=== PATIENT | female | born 1945 | race Caucasian/White ===

== ENCOUNTER → 2016-10-09 | Outpatient (CLI) | payer BC ==
--- NOTE | 2016-10-09 13:53 | US ---
EXAMINATION TYPE: US pelvic complete DATE OF EXAM: 10/09/2016 COMPARISON: NONE CLINICAL HISTORY: Inguinal Pain R10.2. Patient stated she believes has right ligament that loosens wi th bent over position and c/o groin pain with return to upright position; order stated for pelvic and perineal pain which patient denies; uterine fibroid TECHNIQUE: Transabdominal (TA) Date of LMP: age 51's EXAM MEASUREMENTS: Uterus: 7.1 x 4.7 x 4.5 cm Endometrial Stripe: 4.5mm Right Ovary: 2.2 x 2.4 x 1.7 cm Left Ovary: 1.9 x 1.7 x 1.1 cm 1. Uterus: Anteverted; round isoechoic mass with internal calcifications/posterior shadowing and per ipheral color flow suggests uterine fibroid 2. Endometrium: limitedly seen on image 7680 and 8192 and thickness is enlarged 3. Right Ovary: wnl 4. Left Ovary: wnl 5. Bilateral Adnexa: wnl 6. Posterior cul-de-sac: wnl IMPRESSION: 1. Suspected uterine fibroid
== END | disposition home or self-care (01) ==
LOC: RADUSWWP 12:54
PROVIDERS: ATTEND Family Medicine
DX: R10.2 Pelvic and perineal pain (principal)
CPT/HCPCS: 76856

== ENCOUNTER → 2017-01-16 | Outpatient (CLI) | payer BC ==
--- NOTE | 2017-01-19 13:53 | MM ---
Reason for exam: screening (asymptomatic). Last mammogram was performed 1 year ago. History: Patient is postmenopausal and has history of other cancer at age 41. Family history of breast cancer in mother at age 65 and breast cancer in paternal aunt at age 88. Benign right mammotome panel of the right breast, December 07, 2006. Benign stereotactic core biopsy of the left breast, March 31, 2002. Benign stereotactic core biopsy, September 10, 2001. Took hormonal contraceptives for 10 years. Took estrogen for 6 years. Took progesterone for 6 years. Physical Findings: A clinical breast exam by your physician is recommended on an annual basis and results should be correlated with mammographic findings. MG 3D Screening Mammo W/Cad Bilateral CC and MLO view(s) were taken. Prior study comparison: January 16, 2016, bilateral MG screening mammo w CAD. January 09, 2015, bilateral MG screening mammo w CAD. The breast tissue is heterogeneously dense. This may lower the sensitivity of mammography. There is chronic nodularity bilaterally. No significant changes when compared with prior studies. ASSESSMENT: Benign, BI-RAD 2 RECOMMENDATION: Routine screening mammogram of both breasts in 1 year.
== END | disposition home or self-care (01) ==
LOC: RADMAMWWP 10:55
PROVIDERS: ATTEND Family Medicine
DX: Z12.31 Encounter for screening mammogram for malignant neoplasm of breast (principal)
CPT/HCPCS: 77063; G0202

== ENCOUNTER → 2017-07-10 | Outpatient (CLI) | payer BC ==
--- NOTE | 2017-07-10 15:12 | CT ---
EXAMINATION TYPE: CT chest wo con DATE OF EXAM: 07/10/2017 COMPARISON: 03/19/2015 HISTORY: Thoracic aortic aneurysm, without rupture CT DLP: 182.[address] of the chest was performed with lung and mediastinal window settings submitted. The la ck of contrast limits evaluation of the vascular, mediastinal and parenchymal structures including th e upper abdomen. LUNGS: The lungs are clear and free of infiltrate. No atelectasis. No pulmonary nodule or mass is de tected. No pleural effusion. No CT evidence of interstitial lung disease. MEDIASTINUM/MIKAYLA: Ascending thoracic aortic aneurysm measuring 4 cm unchanged from prior study. No co nfluent factors. No evidence for mediastinal hematoma. Ectatic change of the descending thoracic aort a noted. The heart is not enlarged. No evidence for mediastinal mass. No lymph nodes greater than 1cm. UPPER ABDOMEN: No significant abnormality is seen. OTHER: No significant other abnormality. IMPRESSION: 1. Stable ascending thoracic aortic aneurysm.
== END ==
LOC: RADCTMAIN 13:34
PROVIDERS: ATTEND Family Medicine
DX: I71.2 Thoracic aortic aneurysm, without rupture (principal)
CPT/HCPCS: 71250

== ENCOUNTER → 2017-07-29 | Outpatient (CLI) | payer BC ==
--- NOTE | 2017-07-29 11:10 | US ---
EXAMINATION TYPE: US liver DATE OF EXAM: 07/29/2017 COMPARISON: CT 02/08/2012 CLINICAL HISTORY: R94.5 ABN Results Of Liver Function Study. EXAM MEASUREMENTS: Liver Length: 13.1 cm Gallbladder Wall: 0.2 cm CBD: 1.0 cm Right Kidney: 10.2 x 3.9 x 4.0 cm Pancreas: Tail obscured by overlying bowel gas, visualized portions show no abnormality Liver: wnl Gallbladder: No stones or sludge visualized Evidence for sonographic Reid's sign: No CBD: Dilated Right Kidney: No hydronephrosis or masses seen IMPRESSION: 1. Common bile duct is dilated for the patient age. 2. Right upper quadrant ultrasound is otherwise unremarkable.
== END | disposition home or self-care (01) ==
LOC: RADUSWWP 08:52
PROVIDERS: ATTEND Family Medicine
DX: K83.8 Other specified diseases of biliary tract (principal)
CPT/HCPCS: 76705

== ENCOUNTER → 2018-01-28 | Outpatient (CLI) | payer BC ==
--- NOTE | 2018-01-29 09:55 | MM ---
Reason for exam: screening (asymptomatic). Last mammogram was performed 1 year ago. History: Patient is postmenopausal and has history of other cancer at age 41. Family history of breast cancer in mother at age 65 and breast cancer in paternal aunt at age 88. Benign right mammotome panel of the right breast, December 07, 2006. Benign stereotactic core biopsy of the left breast, March 31, 2002. Benign stereotactic core biopsy, September 10, 2001. Took hormonal contraceptives for 10 years. Took estrogen for 6 years. Took progesterone for 6 years. Physical Findings: A clinical breast exam by your physician is recommended on an annual basis and results should be correlated with mammographic findings. MG 3D Screening Mammo W/Cad Bilateral CC and MLO view(s) were taken. Prior study comparison: January 16, 2017, bilateral MG 3d screening mammo w/cad. January 16, 2016, bilateral MG screening mammo w CAD. The breast tissue is heterogeneously dense. This may lower the sensitivity of mammography. Partially obscured nodule upper outer right breast 3.5cm from nipple. This finding is changed when compared with previous exams. ASSESSMENT: Incomplete: need additional imaging evaluation, BI-RAD 0 RECOMMENDATION: Special view mammogram and ultrasound of the right breast. [facility] will attempt to contact patient to return for supplemental views and ultrasound.
== END ==
LOC: RADMAMWWP 14:40
PROVIDERS: ATTEND Family Medicine
DX: Z12.31 Encounter for screening mammogram for malignant neoplasm of breast (principal)
CPT/HCPCS: 77063; 77067

== ENCOUNTER → 2018-02-17 | Outpatient (CLI) | payer BC ==
--- NOTE | 2018-02-17 14:52 | MM ---
Reason for exam: additional evaluation requested from abnormal screening. Last mammogram was performed 1 month ago. History: Patient is postmenopausal and has history of other cancer at age 41. Family history of breast cancer in mother at age 65 and breast cancer in paternal aunt at age 88. Benign right mammotome panel of the right breast, December 07, 2006. Benign stereotactic core biopsy of the left breast, March 31, 2002. Benign stereotactic core biopsy, September 10, 2001. Took hormonal contraceptives for 10 years. Took estrogen for 6 years. Took progesterone for 6 years. Physical Findings: Nurse did not find any significant physical abnormalities on exam. MG 3D Work Up W/Cad RT Spot compression CC, spot compression MLO, and LM view(s) were taken of the right breast. Prior study comparison: January 28, 2018, bilateral MG 3d screening mammo w/cad. January 16, 2017, bilateral MG 3d screening mammo w/cad. The breast tissue is heterogeneously dense. This may lower the sensitivity of mammography. Nodule persists upper outer quadrant. These results were verbally communicated with the patient and result sheet given to the patient on 02/17/18. ASSESSMENT: Incomplete: need additional imaging evaluation, BI-RAD 0 RECOMMENDATION: Ultrasound of the right breast.
--- NOTE | 2018-02-17 14:53 | USB ---
Reason for exam: additional evaluation requested from abnormal screening. History: Patient is postmenopausal and has history of other cancer at age 41. Family history of breast cancer in mother at age 65 and breast cancer in paternal aunt at age 88. Benign right mammotome panel of the right breast, December 07, 2006. Benign stereotactic core biopsy of the left breast, March 31, 2002. Benign stereotactic core biopsy, September 10, 2001. Took hormonal contraceptives for 10 years. Took estrogen for 6 years. Took progesterone for 6 years. US Breast Workup Limited RT Right limited breast ultrasound including focal area of concern, retroareolar and axilla demonstrates a 8 x 6 x 10mm lobular, cystic lesion at 11 o'clock. These results were verbally communicated with the patient and result sheet given to the patient on 02/17/18. ASSESSMENT: Benign, BI-RAD 2 RECOMMENDATION: Return to routine screening mammogram schedule for both breasts.
== END | disposition home or self-care (01) ==
LOC: RADMAMWWP 13:35
PROVIDERS: ATTEND Family Medicine
DX: R92.8 Other abnormal and inconclusive findings on diagnostic imaging of breast (principal)
CPT/HCPCS: 77061; 77065

== ENCOUNTER → 2018-07-19 | Outpatient (CLI) | payer BC ==
--- NOTE | 2018-07-19 14:40 | CT ---
EXAMINATION TYPE: CT chest wo con DATE OF EXAM: 07/19/2018 COMPARISON: 07/10/2017 HISTORY: Thoracic aortic aneurysm CT DLP: [address] of the chest was performed with lung and mediastinal window settings submitted. The la ck of contrast limits evaluation of the vascular, mediastinal and parenchymal structures including th e upper abdomen. LUNGS: The lungs are clear and free of infiltrate. No atelectasis. No pulmonary nodule or mass is de tected. No pleural effusion. No CT evidence of interstitial lung disease. MEDIASTINUM/MIKAYLA: Stable ascending thoracic aortic aneurysm at 4 cm versus 4 cm previously. Coronary artery calcifications noted. The heart is mildly enlarged. No evidence for mediastinal mass. No lym ph nodes greater than 1cm. UPPER ABDOMEN: No significant abnormality is seen. OTHER: No significant other abnormality. IMPRESSION: 1. Stable ascending thoracic aortic aneurysm.
== END | disposition home or self-care (01) ==
LOC: RADCTMAIN 13:38
PROVIDERS: ATTEND Family Medicine
DX: I71.2 Thoracic aortic aneurysm, without rupture (principal)
CPT/HCPCS: 71250

== ENCOUNTER → 2019-01-14 | Outpatient (CLI) | payer MEDICARE, OTHER ==
--- NOTE | 2019-01-14 12:08 | FL ---
EXAMINATION TYPE: FL barium swallow DATE OF EXAM: 01/14/2019 CLINICAL HISTORY: Upper esophageal dysphagia. TECHNIQUE: A double contrast esophagram is performed utilizing air and barium. A total of 1.59 margot hannah of fluoroscopic time was utilized during procedure. 54 static images were saved during the examin ation. COMPARISON: None FINDINGS: Given the patient's upper esophageal dysphagia lateral image was obtained demonstrating no evidence of laryngeal penetration or aspiration. The esophagus shows normal abnormal and delayed empt paul into the stomach. There are tertiary contractions suggesting presbyesophagus and delayed transit at the gastroesophageal junction persistent lesion throughout the exam is indicative of a partial st ricture. Endoscopy is recommended. The lateral view demonstrates anterior cervical osteophytes impressing upon the posterior esophagus. No evidence of hiatal hernia. No significant gastroesophageal reflux was seen during real time perfor shavonne of this study. IMPRESSION: 1. 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 2. Abnormal esophageal motility with tertiary contractions most likely related to presbyesophagus or less likely neuromuscular disorder. 3. Anterior projecting osteophytes from the cervical spine on the basis of degenerative disc disease resulting in mild impression on the posterior cervical esophagus at multiple levels.
== END ==
LOC: RADUSWWP 11:00
PROVIDERS: ATTEND Family Medicine
DX: K22.2 Esophageal obstruction (principal); K22.8 Other specified diseases of esophagus; M50.30 Other cervical disc degeneration, unspecified cervical region
CPT/HCPCS: 74220

== ENCOUNTER → 2019-02-28 | Outpatient (CLI) | payer MEDICARE, OTHER ==
--- NOTE | 2019-03-01 11:40 | MM ---
Reason for exam: screening (asymptomatic). Last mammogram was performed 1 year ago. History: Patient is postmenopausal and has history of other cancer at age 41. Family history of breast cancer in mother at age 65 and breast cancer in paternal aunt at age 88. Benign right mammotome panel of the right breast, December 07, 2006. Benign stereotactic core biopsy of the left breast, March 31, 2002. Benign stereotactic core biopsy, September 10, 2001. Took hormonal contraceptives for 10 years. Took estrogen for 6 years. Took progesterone for 6 years. Physical Findings: A clinical breast exam by your physician is recommended on an annual basis and results should be correlated with mammographic findings. MG 3D Screening Mammo W/Cad Bilateral CC and MLO view(s) were taken. Prior study comparison: February 17, 2018, right breast MG 3d work up w/cad RT. January 28, 2018, bilateral MG 3d screening mammo w/cad. The breast tissue is heterogeneously dense. This may lower the sensitivity of mammography. There is no discrete abnormality. No significant changes when compared with prior studies. ASSESSMENT: Benign, BI-RAD 2 RECOMMENDATION: Routine screening mammogram of both breasts in 1 year.
== END | disposition home or self-care (01) ==
LOC: RADMAMWWP 13:30
PROVIDERS: ATTEND Family Medicine
DX: Z12.31 Encounter for screening mammogram for malignant neoplasm of breast (principal)
CPT/HCPCS: 77063; 77067

== ENCOUNTER → 2019-08-24 | Outpatient (CLI) | payer MEDICARE, OTHER ==
--- NOTE | 2019-08-24 15:54 | CT ---
CT CHEST FOR PULMONARY EMBOLISM. EXAMINATION TYPE: CT angio chest DATE OF EXAM: 08/24/2019 INDICATION: follow up thoracic aortic aneurysm CT DLP: 161.9 mGycm, Automated exposure control for dose reduction was used. CONTRAST: Patient injected with 100 mL of Isovue 370. COMPARISON: 07/19/2018 TECHNIQUE: CT of the chest is performed on a spiral scan at 2 mm thick sections. Study is performed with intravenous contrast timed for evaluation for aortic aneurysm. This will limit additional porti ons of the evaluation. FINDINGS: No persistent filling defects are evident to suggest an acute pulmonary embolism. No mediastinal or hilar adenopathy enlarged by CT criteria is evident. The ascending aorta diameter at the level of the main pulmonary artery is 3.6 cm. The main pulmonary artery diameter at the bifur cation is 2.4 cm. Aorta at the aortic root is 3.2 cm area the aorta at the mid aortic arch is 2.7 cm. The descending th oracic aorta at the level of the diaphragm is 2.3 cm. No dissection is evident. Lung windows are clear. Limited CT section through the upper abdomen are unremarkable. IMPRESSIONS: 1. Mild fusiform prominence of the ascending thoracic aorta. No increasing diameter of the thoracic a ginny is evident.
== END | disposition home or self-care (01) ==
LOC: RADCTMAIN 12:50
PROVIDERS: ATTEND Thoracic Surgery (Cardiothoracic Vascular Surgery)
DX: I71.2 Thoracic aortic aneurysm, without rupture (principal)
CPT/HCPCS: 82565; 84520; 71275; 36415; Q9967

== ENCOUNTER → 2020-02-15 | Outpatient (CLI) | payer MEDICARE, OTHER ==
--- NOTE | 2020-02-15 14:19 | US ---
EXAMINATION TYPE: US thyroid st tissue head/neck DATE OF EXAM: 02/15/2020 COMPARISON: NONE CLINICAL HISTORY: R22.1 SWELLING,MASS,LUMP. Right neck palpable area x couple months Right Neck: 1.5 x 0.6 x 0.9cm lymph node seen at patient's area of concern IMPRESSION: Limited ultrasound scanning over the area of palpable abnormality demonstrates a small l ymph node overlying the area of concern measuring 1.5 x 0.6 x 0.9 cm.
--- NOTE | 2020-02-15 14:25 | US ---
EXAMINATION TYPE: US carotid duplex BILAT DATE OF EXAM: 02/15/2020 COMPARISON: NONE CLINICAL HISTORY: I77.9 disorder of arteries and arterioles. EXAM MEASUREMENTS: RIGHT: Peak Systolic Velocity (PSV) cm/sec ----- Right CCA: 76.7 ----- Right ICA: 84.4 ----- Right ECA: 149.0 ICA/CCA ratio: 1.1 RIGHT: End Diastole cm/sec ----- Right CCA: 20.1 ----- Right ICA: 28.8 ----- Right ECA: 21.3 LEFT: Peak Systolic Velocity (PSV) cm/sec ----- Left CCA: 94.5 ----- Left ICA: 79.8 ----- Left ECA: 107.0 ICA/CCA ratio: 0.8 LEFT: End Diastole cm/sec ----- Left CCA: 23.4 ----- Left ICA: 31.9 ----- Left ECA: 17.7 VERTEBRALS (direction of flow): Right Vertebral: Antegrade Left Vertebral: Antegrade Rhythm: Normal Intimal thickening, elevated velocity right proximal ECA, no significant stenosis. IMPRESSION: 1. Intimal thickening with no significant hemodynamic stenosis. Criteria for Assigning % of Stenosis / Diameter reduction (Estimation based on the indirect measurements of the internal carotid artery velocities (ICA PSV). 1. Normal (no stenosis)=ICA PSV < 125 cm/s: ratio < 2.0: ICA EDV<40 cm/s. 2. Less than 50% stenosis=ICA PSV < 125 cm/s: ratio < 2.0: ICA EDV<40 cm/s. 3. 50 to 69% stenosis=ICA PSV of 125 to 230 cm/s: ration 2.0 ? 4.0: ICA EDV 40-100 cm/s. 4. Greater than 70% stenosis to near occlusion= ICA PSV > 230 cm/s: ratio > 4.0: ICA EDV > 100 cm/s. 5. Near occlusion= ICA PSV velocities may be low or undetectable: variable ratio and ICA EDV. 6. Total occlusion=unable to detect flow.
== END | disposition home or self-care (01) ==
LOC: RADUSWWP 13:41
PROVIDERS: ATTEND Family Medicine
DX: E04.1 Nontoxic single thyroid nodule (principal); I77.9 Disorder of arteries and arterioles, unspecified
CPT/HCPCS: 76536; 93880

== ENCOUNTER → 2020-04-18 | Outpatient (CLI) | payer MEDICARE, OTHER ==
--- NOTE | 2020-04-18 15:13 | BD ---
EXAMINATION TYPE: Axial Bone Density DATE OF EXAM: 04/18/2020 COMPARISON: 01/09/2015 CLINICAL HISTORY: Postmenopausal female. Height: 67 IN Weight: 144 LBS FRAX RISK QUESTIONS: Alcohol (3 or more units per day): YES RISK FACTORS HISTORY OF: Active: YES Postmenopausal woman: AGE 56 Take estrogen and/or progesterone medications: NOT NOW TOOK FOR 6 YEARS MEDICATIONS: Additional Medications: MULTI VIT, CALCIUM, OMEPRAZOLE, STATIN EXAM MEASUREMENTS: Bone mineral densitometry was performed using the cloudControl System. Bone mineral density as measured about the Lumbar spine is: ----- L1-L4(G/cm2): 1.552 T Score Values are as follows: ----- L2: 3.3 ----- L3: 3.6 ----- L4: 2.5 ----- L1-L4: 3.1 Bone mineral density has: Decreased -0.8% since study of: 01/09/2015 Bone mineral density about the R hip (g/cm2): 0988 Bone mineral density about the L hip (g/cm2): 1.040 T Score values are as follows: -----R Neck: -0.4 -----L Neck: 0.0 -----R Total: 0.2 -----L Total: 0.7 Bone mineral density has: Decreased -3.7% since study of: 01/05/2015 IMPRESSION: Normal (Values between +1 and -1 indicate normal bone mass). Consider repeating this study in 5 year s or sooner if there is some new clinical indication. NOTE: T-SCORE=SD OF THE YOUNG ADULT MEAN.
--- NOTE | 2020-04-19 14:28 | MM ---
Reason for exam: screening (asymptomatic). Last mammogram was performed 1 year and 2 months ago. History: Patient is postmenopausal and has history of other cancer at age 41. Family history of breast cancer in mother at age 65 and breast cancer in paternal aunt at age 88. Benign right mammotome panel of the right breast, December 07, 2006. Benign stereotactic core biopsy of the left breast, March 31, 2002. Benign stereotactic core biopsy, September 10, 2001. Took hormonal contraceptives for 10 years. Took estrogen for 6 years. Took progesterone for 6 years. Physical Findings: A clinical breast exam by your physician is recommended on an annual basis and results should be correlated with mammographic findings. MG 3D Screening Mammo W/Cad Bilateral CC and MLO view(s) were taken. Prior study comparison: February 28, 2019, bilateral MG 3d screening mammo w/cad. February 17, 2018, right breast MG 3d work up w/cad RT. January 28, 2018, bilateral MG 3d screening mammo w/cad. January 16, 2017, bilateral MG 3d screening mammo w/cad. January 16, 2016, bilateral MG screening mammo w CAD. There are scattered fibroglandular densities. Previous mammotome biopsy in the right breast x 1 and in the left breast x 2. There is chronic nodularity in the right breast. No significant changes when compared with prior studies. ASSESSMENT: Benign, BI-RAD 2 RECOMMENDATION: Routine screening mammogram of both breasts in 1 year.
== END | disposition home or self-care (01) ==
LOC: RADMAMWWP 10:06
PROVIDERS: ATTEND Family Medicine
DX: Z12.31 Encounter for screening mammogram for malignant neoplasm of breast (principal); Z13.820 Encounter for screening for osteoporosis
CPT/HCPCS: 77063; 77067; 77080

== ENCOUNTER 2021-03-05 06:35 | Day surgery (SDC) | payer MEDICARE, OTHER ==
[2021-03-04 11:06] VITALS: BMI 21.9
[~2021-03-05 06:35] MED LIST: LACTATED RINGERS 1,000 ML IV SCH; LIDOCAINE 1% (10MG/ML) FOR IV START INTRADERMA PRN
[2021-03-05 07:01] VITALS: TEMP 98
[2021-03-05 07:11] LABS: Glucose,Whole Blood 95 mg/dL (75-99)
[2021-03-05] MEDS ORDERED: PROPOFOL 10 MG/ML 20 ML VIAL IV ONE (07:18)
--- NOTE | 2021-03-05 07:34 | P.PCN ---
Date of Procedure: 03/05/21 Procedure(s) Performed: BRIEF HISTORY: Patient is a 75-year-old pleasant female scheduled for an elective colonoscopy as a part of value should of prior history of colon polyps. Her last colonoscopy was 5 years ago. PROCEDURE PERFORMED: Colonoscopy. PREOPERATIVE DIAGNOSIS: History of colon polyps. IV sedation per Anesthesia. PROCEDURE: After informed consent was obtained, the patient, was brought into the endoscopy unit. IV sedation was administered by Anesthesia under continuous monitoring. Digital rectal examination was normal. Initially the Olympus CF-160 flexible video colonoscope was then inserted in the rectum, gradually advanced into the cecum without any difficulty. Careful examination was performed as the scope was gradually being withdrawn. Ileocecal valve and the appendiceal orifice were visualized and appeared normal. Prep was excellent. Mucosa of the cecum, ascending colon, transverse colon, descending colon, sigmoid colon, and rectum appeared normal. At her sigmoid diverticulosis. Retroflexion was performed in the rectum and no lesions were seen. The patient tolerated the procedure well. IMPRESSION: Normal-appearing colon from rectum to cecum no evidence of colorectal neoplasia . Scattered sigmoid diverticulosis RECOMMENDATIONS: Findings of this examination were discussed with the patient as well as her family. She was advised to have a repeat surveillance colonoscopy in 5 years from now because of the prior history of colon.
[2021-03-05 07:44] VITALS: RESP 16
[2021-03-05 07:50] VITALS: BP 146/79; PULSE 59
== END 2021-03-05 08:37 | disposition home or self-care (01) ==
LOC: ORWHC2ENDO 06:35
PROVIDERS: ATTEND Internal Medicine Gastroenterology
DX: Z12.11 Encounter for screening for malignant neoplasm of colon (principal); K57.90 Diverticulosis of intestine, part unspecified, without perforation or abscess without bleeding; M19.90 Unspecified osteoarthritis, unspecified site; I10 Essential (primary) hypertension; E78.5 Hyperlipidemia, unspecified; K21.9 Gastro-esophageal reflux disease without esophagitis; Z86.010 Personal history of colon polyps; Z88.0 Allergy status to penicillin; Z88.1 Allergy status to other antibiotic agents; Z88.5 Allergy status to narcotic agent; Z88.2 Allergy status to sulfonamides; Z79.899 Other long term (current) drug therapy
CPT/HCPCS: J2704; G0105; 45378

== ENCOUNTER → 2021-04-23 | Outpatient (CLI) | payer MEDICARE, OTHER ==
--- NOTE | 2021-04-25 11:47 | MM ---
Reason for exam: screening (asymptomatic). Last mammogram was performed 1 year ago. History: Patient is postmenopausal and has history of other cancer at age 41. Family history of breast cancer in mother at age 65 and breast cancer in paternal aunt at age 88. Benign right mammotome panel of the right breast, December 07, 2006. Benign stereotactic core biopsy of the left breast, March 31, 2002. Benign stereotactic core biopsy, September 10, 2001. Took hormonal contraceptives for 10 years. Took estrogen for 6 years. Took progesterone for 6 years. Physical Findings: A clinical breast exam by your physician is recommended on an annual basis and results should be correlated with mammographic findings. MG 3D Screening Mammo W/Cad Bilateral CC and MLO view(s) were taken. Prior study comparison: April 18, 2020, bilateral MG 3d screening mammo w/cad. February 28, 2019, bilateral MG 3d screening mammo w/cad. The breast tissue is heterogeneously dense. This may lower the sensitivity of mammography. There are benign appearing round calcifications bilaterally. Previous mammotome biopsy in the left breast x 2. There is chronic nodularity in the right breast. There is no discrete abnormality. ASSESSMENT: Benign, BI-RAD 2 RECOMMENDATION: Routine screening mammogram of both breasts in 1 year.
== END | disposition home or self-care (01) ==
LOC: RADMAMWWP 15:41
PROVIDERS: ATTEND Family Medicine
DX: Z12.31 Encounter for screening mammogram for malignant neoplasm of breast (principal); Z78.0 Asymptomatic menopausal state; Z80.3 Family history of malignant neoplasm of breast
CPT/HCPCS: 77063; 77067

== ENCOUNTER 2022-04-23 12:19 | Emergency (ER) | payer MEDICARE, OTHER ==
[2022-04-23 12:46] VITALS: TEMP 97.6
[2022-04-23 13:33] LABS: Basophils % (A) 1 %; Eosinophils # (A) 0.1 k/uL (0-0.7); Eosinophils % (A) 2 %; HCT 39.8 % (34.0-46.0); HGB 13.4 gm/dL (11.4-16.0); Lymphocytes # (A) 0.8 k/uL (1.0-4.8); Lymphocytes % (A) 20 %; MCH 31.9 pg (25.0-35.0); MCHC 33.6 g/dL (31.0-37.0); Mean Platelet Volume 7.6; Monocytes # (A) 0.2 k/uL (0-1.0); Monocytes % (A) 6 %; Neutrophils # (A) 2.8 k/uL (1.3-7.7); Neutrophils % (A) 69 %; Platelet Count 287 k/uL (150-450); RBC 4.19 m/uL (3.80-5.40); RDW 12.3 % (11.5-15.5); WBC 4.1 k/uL (3.8-10.6)
[2022-04-23 13:40] LABS: Albumin 4.1 g/dL (3.5-5.0); Calcium 8.8 mg/dL (8.4-10.2); Potassium 4.4 mmol/L (3.5-5.1); Total Bilirubin 0.4 mg/dL (0.2-1.3); Total Protein 6.9 g/dL (6.3-8.2)
[2022-04-23 13:41] LABS: Partial Thromboplastin Time 25.5 sec (22.0-30.0); Prothrombin Time 10.4 sec (9.0-12.0)
--- NOTE | 2022-04-23 14:12 | ED ---
Back Pain HPI - General Chief Complaint: Back Pain/Injury Stated Complaint: sudden back/neck pain Time Seen by Provider: 04/23/22 12:50 Source: patient - History of Present Illness Initial Comments: 76-year-old female with past medical history of aortic aneurysm presents to the emergency department with intrascapular back pain. Reports that at 1145 this morning she was taking a shower when she had sudden onset of pain in between her shoulder blades. She states that it was a sharp pain which lasted approximately 15 minutes before spontaneously resolved. She states that the pain slowly eased up. She has never had pain similar before in the past. Denies any associated shortness of breath. No fevers, chills or cough. No numbness, tingling or weakness in her extremities. She does have a history of aneurysm. Is scheduled for a CT next week to determine the progression of it. She follows with Dr. Muñoz. She denies any anterior chest pain. No abdominal pain. Pain is completely resolved at this time. No other history of cardiac disease. No other alleviating, precipitating or modifying factors - Related Data Home Medications Medication Instructions Recorded Confirmed Atorvastatin Calcium 10 mg PO DAILY 11/14/15 04/23/22 Omeprazole 20 mg PO DAILY 11/14/15 04/23/22 Allergies Allergy/AdvReac Type Severity Reaction Status Date / Time clindamycin HCl Allergy Anaphylaxis, Verified 04/23/22 14:37 [From Cleocin] SWELLING OF LIPS clindamycin palmitate HCl Allergy Anaphylaxis,SWELLING Verified 04/23/22 14:37 [From Cleocin] OF LIPS clindamycin phosphate Allergy Anaphylaxis Verified 04/23/22 14:37 [From Cleocin] nitrofurantoin Allergy CHILLS,ACHE Verified 04/23/22 14:37 [From Macrodantin] S,FEVER Penicillins Allergy FACE GOT Verified 04/23/22 14:37 RED CHILD propoxyphene napsylate Allergy Swelling, Verified 04/23/22 14:37 [From Darvocet-N] UNABLE TO URINATE, FELT STRANGE rofecoxib [From Vioxx] Allergy Swelling Verified 04/23/22 14:37 Sulfa (Sulfonamide Allergy Anaphylaxis Verified 04/23/22 14:37 Antibiotics) gentamicin AdvReac POSSIBLE Verified 04/23/22 14:37 ALLERGY TOOK WITH CLEOCIN Review of Systems ROS Statement: Those systems with pertinent positive or pertinent negative responses have been documented in the HPI. ROS Other: All systems not noted in ROS Statement are negative. Past Medical History Past Medical History: Cancer, GERD/Reflux, Osteoarthritis (OA) Additional Past Medical History / Comment(s): hx- diverticulitis, HYPOGLYCEMIA, SKIN CANCER, aortic aneurysm History of Any Multi-Drug Resistant Organisms: None Reported Past Surgical History: Orthopedic Surgery, Tonsillectomy Additional Past Surgical History / Comment(s): RT HEEL SPUR SX. DEVIATED SEPTUM REPAIR. ABDOMINALOPLASTY, RIGHT THUMB SURGERY Past Anesthesia/Blood Transfusion Reactions: No Reported Reaction Past Psychological History: No Psychological Hx Reported Smoking Status: Former smoker Past Alcohol Use History: Daily Past Drug Use History: None Reported - Past Family History Mother Family Medical History: Cancer Additional Family Medical History / Comment(s): BREAST General Exam General appearance: alert, in no apparent distress Head exam: Present: atraumatic, normocephalic, normal inspection Eye exam: Present: normal appearance, PERRL, EOMI. Absent: scleral icterus, conjunctival injection, periorbital swelling ENT exam: Present: normal exam, mucous membranes moist Neck exam: Present: normal inspection. Absent: tenderness, meningismus, lymphadenopathy Respiratory exam: Present: normal lung sounds bilaterally. Absent: respiratory distress, wheezes, rales, rhonchi, stridor Cardiovascular Exam: Present: regular rate, normal rhythm, normal heart sounds. Absent: systolic murmur, diastolic murmur, rubs, gallop, clicks GI/Abdominal exam: Present: soft, normal bowel sounds. Absent: distended, tenderness, guarding, rebound, rigid Extremities exam: Present: normal inspection, full ROM, normal capillary refill. Absent: tenderness, pedal edema, joint swelling, calf tenderness Back exam: Present: normal inspection Neurological exam: Present: alert, oriented X3, CN II-XII intact Psychiatric exam: Present: normal affect, normal mood Skin exam: Present: warm, dry, intact, normal color. Absent: rash Course Vital Signs 04/23/22 04/23/22 12:42 15:06 Temperature 97.6 F Pulse Rate 82 65 Respiratory 16 18 Rate Blood Pressure 167/77 167/99 O2 Sat by Pulse 95 98 Oximetry Medical Decision Making - Medical Decision Making Was pt. sent in by a medical professional or institution? no Did you speak to anyone other than the patient for history? no Did you review nursing and triage notes? yes and I agree Were old charts reviewed? yes, previous imaging to understand size of patients aneurysm Differential Diagnosis? pulmonary embolism, aortic dissection, coronary vasospasm, coronary dissection, valvular disorder, pleurisy, msk pain, chest wall strain, costochondritis EKG interpreted by me (3pts min.)? yes X-rays interpreted by me (1pt min.)? no CT interpreted by me (1pt min.)? yes U/S interpreted by me (1pt. min.)? no What testing was considered but not performed? (CT, X-rays, U/S, labs)? Why? none What meds were considered but not given? Why? none Did you discuss the management of the patient with other professionals? no Did you reconcile home meds? no Was smoking cessation discussed for >3mins.? no Was critical care preformed (if so, how long)? no Were there social determinants of health that impacted care today? How? (Homelessness, low income, unemployed, alcoholism, drug addiction, transportation, low edu. Level, literacy, decrease access to med. care, care home, rehab)? none Was there de-escalation of care discussed even if they declined? (Discuss DNR or withdrawal of care, Hospice)? no What co-morbidities impacted this encounter? (DM, HTN, Smoking, COPD, CAD, Cancer, CVA, Hep., AIDS, mental health diagnosis, sleep apnea, morbid obesity)? htn, aortic aneurysm Was patient admitted / discharged? @Upon arrival patient was placed into room 18. A thorough history and physical exam is performed. IV access was established. Laboratory studies were conducted. The lead EKG is obtained. Patient remained on continuous pulse ox and cardiac monitoring. I did review the patient's laboratory studies which demonstrated negative first troponin. Patient is sent for CT of her chest which demonstrates a stable aortic aneurysm. Results are discussed with the patient. She has remained pain free throughout her stay. Did recommend admission however the patient would prefer to follow up outpatient. I am able to draw second troponin off the patient which is also negative. Patient will be discharged home and needs to follow-up with her smelting engineer for further evaluation of her symptoms or return for any new or worsening symptoms. Patient was agreeable to this plan and she was discharged home in stable condition Undiagnosed new problem with uncertain prognosis? yes Drug Therapy requiring intensive monitoring for toxicity (Heparin, Nitro, Insulin, Cardizem)? no Were any procedures done? no Diagnosis/symptom? acute chest pain Acute, or Chronic, or Acute on Chronic? acute Uncomplicated (without systemic symptoms) or Complicated (systemic symptoms)? complicated Side effects of treatment? none Exacerbation, Progression, or Severe Exacerbation] no Poses a threat to life or bodily function? yes - Lab Data Result diagrams: 04/23/22 13:07 04/23/22 13:07 Lab Results 04/23/22 04/23/22 04/23/22 Range/Units 13:07 13:07 13:07 WBC 4.1 (3.8-10.6) k/uL RBC 4.19 (3.80-5.40) m/uL Hgb 13.4 (11.4-16.0) gm/dL Hct 39.8 (34.0-46.0) % MCV 95.0 (80.0-100.0) fL MCH 31.9 (25.0-35.0) pg MCHC 33.6 (31.0-37.0) g/dL RDW 12.3 (11.5-15.5) % Plt Count 287 (150-450) k/uL MPV 7.6 Neutrophils % 69 % Lymphocytes % 20 % Monocytes % 6 % Eosinophils % 2 % Basophils % 1 % Neutrophils # 2.8 (1.3-7.7) k/uL Lymphocytes # 0.8 L (1.0-4.8) k/uL Monocytes # 0.2 (0-1.0) k/uL Eosinophils # 0.1 (0-0.7) k/uL Basophils # 0.0 (0-0.2) k/uL PT 10.4 (9.0-12.0) sec INR 1.0 (<1.2) APTT 25.5 (22.0-30.0) sec Sodium 136 L (137-145) mmol/L Potassium 4.4 (3.5-5.1) mmol/L Chloride 105 (98-107) mmol/L Carbon Dioxide 25 (22-30) mmol/L Anion Gap 6 mmol/L BUN 15 (7-17) mg/dL Creatinine 0.76 (0.52-1.04) mg/dL Est GFR (CKD-EPI)AfAm 89 (>60 ml/min/1.73 sqM) Est GFR (CKD-EPI)NonAf 77 (>60 ml/min/1.73 sqM) Glucose 108 H (74-99) mg/dL Calcium 8.8 (8.4-10.2) mg/dL Magnesium 2.0 (1.6-2.3) mg/dL Total Bilirubin 0.4 (0.2-1.3) mg/dL AST 32 (14-36) U/L ALT 28 (4-34) U/L Alkaline Phosphatase 78 (38-126) U/L Troponin I (0.000-0.034) ng/mL Total Protein 6.9 (6.3-8.2) g/dL Albumin 4.1 (3.5-5.0) g/dL Lipase 194 (23-300) U/L 04/23/22 04/23/22 Range/Units 13:07 14:44 WBC (3.8-10.6) k/uL RBC (3.80-5.40) m/uL Hgb (11.4-16.0) gm/dL Hct (34.0-46.0) % MCV (80.0-100.0) fL MCH (25.0-35.0) pg MCHC (31.0-37.0) g/dL RDW (11.5-15.5) % Plt Count (150-450) k/uL MPV Neutrophils % % Lymphocytes % % Monocytes % % Eosinophils % % Basophils % % Neutrophils # (1.3-7.7) k/uL Lymphocytes # (1.0-4.8) k/uL Monocytes # (0-1.0) k/uL Eosinophils # (0-0.7) k/uL Basophils # (0-0.2) k/uL PT (9.0-12.0) sec INR (<1.2) APTT (22.0-30.0) sec Sodium (137-145) mmol/L Potassium (3.5-5.1) mmol/L Chloride (98-107) mmol/L Carbon Dioxide (22-30) mmol/L Anion Gap mmol/L BUN (7-17) mg/dL Creatinine (0.52-1.04) mg/dL Est GFR (CKD-EPI)AfAm (>60 ml/min/1.73 sqM) Est GFR (CKD-EPI)NonAf (>60 ml/min/1.73 sqM) Glucose (74-99) mg/dL Calcium (8.4-10.2) mg/dL Magnesium (1.6-2.3) mg/dL Total Bilirubin (0.2-1.3) mg/dL AST (14-36) U/L ALT (4-34) U/L Alkaline Phosphatase (38-126) U/L Troponin I <0.012 <0.012 (0.000-0.034) ng/mL Total Protein (6.3-8.2) g/dL Albumin (3.5-5.0) g/dL Lipase (23-300) U/L - EKG Data EKG Comments: EKG demonstrates sinus rhythm with a rate of 68. MO interval 170. QRS 93. QTC of 401. No acute ST segment elevations or depressions Disposition Clinical Impression: Back pain, Hx of aortic aneurysm Disposition: HOME SELF-CARE Condition: Stable Instructions (If sedation given, give patient instructions): Back Pain (ED) Additional Instructions: We will call you if the results of your second enzyme come back positive. Please also see your doctor in 2-4 days and return for any new or worsening symptoms Is patient prescribed a controlled substance at d/c from ED?: No Referrals: Calin Carlisle DO [Primary Care Provider] - 1-2 days Time of Disposition: 14:45
--- NOTE | 2022-04-23 14:25 | CT ---
CT CHEST FOR PULMONARY EMBOLISM. EXAMINATION TYPE: CT angio chest DATE OF EXAM: 04/23/2022 INDICATION: chest pain, hx aneurysm CT DLP: 600.9 mGycm, Automated exposure control for dose reduction was used. CONTRAST: Patient injected with 100 mL of Isovue 370. COMPARISON: 08/24/2019 TECHNIQUE: CT of the chest is performed on a spiral scan at 2 mm thick sections. Study is performed with intravenous contrast timed for evaluation of thoracic aneurysm. This will limit additional port ions of the evaluation. 3-D MIP images reconstructed by the technologist are reviewed on the compute r in the coronal and sagittal planes. FINDINGS: There is a three-vessel arch. The aorta appears to taper towards visualized course. The thoracic aort a and pulmonary artery measures 3.7 cm. Previous measurement 3.6 cm. This can be within measurement e rror. Main pulmonary artery at the bifurcation measures 2.6 cm. Transverse thoracic aorta arch measur es 2.6 cm. The descending thoracic aorta appears normal. No aortic dissections are evident. Celiac ax is and superior mesenteric arteries appear normal. The visualized portions of the renal artery takeof f are normal. No mediastinal or hilar adenopathy enlarged by CT criteria is evident. Lung windows are clear. Limited CT section through the upper abdomen are unremarkable. IMPRESSIONS: 1. Ascending thoracic aortic fusiform prominence of 3.7 cm.
[2022-04-23 15:08] VITALS: BP 167/99; PULSE 65; RESP 18
== END 2022-04-23 15:08 | disposition home or self-care (01) ==
LOC: EC 12:19
DX: M54.50 Low back pain, unspecified (principal); I71.9 Aortic aneurysm of unspecified site, without rupture; K21.9 Gastro-esophageal reflux disease without esophagitis; M19.90 Unspecified osteoarthritis, unspecified site; Z79.899 Other long term (current) drug therapy; Z87.891 Personal history of nicotine dependence; Z88.0 Allergy status to penicillin; Z88.1 Allergy status to other antibiotic agents; Z88.2 Allergy status to sulfonamides; Z88.8 Allergy status to other drugs, medicaments and biological substances
CPT/HCPCS: 36415; 93005; 80053; 83690; 83735; 84484; 85025; 85610; 85730; 71275; 99284; Q9967

== ENCOUNTER → 2022-05-01 | Outpatient (CLI) | payer MEDICARE, OTHER ==
--- NOTE | 2022-05-04 18:27 | MM ---
Reason for Exam: Screening (asymptomatic). Last screening mammogram was performed 12 month(s) ago. Patient History: Menarche at age 12. First Full-Term at age 27. Postmenopausal. Other cancer, age 41. Estrogen for 6 years until age 56. Progesterone for 6 years until age 56. Patient used Hormonal Contraceptives for 10 years. 12/07/2006, Benign Core Biopsy on the right side. 03/31/2002, Benign Stereotactic Core Biopsy on the left side. Benign Stereotactic Core Biopsy. Paternal aunt had breast cancer, age 88. Mother had breast cancer, age 65. Risk Values: Radha 5 year model risk: 5.7%. NCI Lifetime model risk: 11.9%. Prior Study Comparison: 03/03/1996 Screening Mammogram, Unknown. 03/14/1996 Screening Mammogram, Unknown. 10/26/2007 Bilateral Diagnostic Mammogram, [facility]. 11/28/2008 Bilateral Diagnostic Mammogram, [facility]. 12/04/2009 Bilateral Diagnostic Mammogram, [facility]. 12/06/2010 Bilateral Screening Mammogram, [facility]. 12/12/2011 Bilateral Screening Mammogram, [facility]. 12/24/2012 Bilateral Screening Mammogram, [facility]. 12/28/2013 Bilateral Screening Mammogram, [facility]. 01/09/2015 Bilateral Screening Mammogram, [facility]. 01/16/2016 Bilateral Screening Mammogram, [facility]. 01/16/2017 Bilateral Screening Mammogram, [facility]. 01/28/2018 Bilateral Screening Mammogram, [facility]. 02/17/2018 Right Diagnostic Mammogram, [facility]. 02/17/2018 Right Diagnostic Ultrasound, [facility]. 02/28/2019 Bilateral Screening Mammogram, [facility]. 04/18/2020 Bilateral Screening Mammogram, [facility]. 04/23/2021 Bilateral Screening Mammogram, [facility]. Tissue Density: There are scattered fibroglandular densities. Findings: Analyzed By CAD. Chronic bilateral nodularity. Microclip left breast and medial right breast from prior biopsies. There is no suspicious group of microcalcifications or new suspicious mass in either breast. Overall Assessment: Benign, BI-RAD 2 Management: Screening Mammogram of both breasts in 1 year. 1. Patient should continue monthly self breast exams. 2. A clinical breast exam by your physician is recommended on an annual basis. 3. This exam should not preclude additional follow-up of suspicious palpable abnormalities. Electronically signed and approved by: Brittnee Benitez M.D. Radiologist
== END | disposition home or self-care (01) ==
LOC: RADMAMWWP 14:59
PROVIDERS: ATTEND Family Medicine
DX: Z12.31 Encounter for screening mammogram for malignant neoplasm of breast (principal); Z78.0 Asymptomatic menopausal state; Z80.3 Family history of malignant neoplasm of breast
CPT/HCPCS: 77063; 77067

== ENCOUNTER → 2022-09-10 | Outpatient (CLI) | payer MEDICARE, OTHER | END | disposition home or self-care (01) | LOC: LABPAT 15:33 | PROVIDERS: ATTEND Obstetrics & Gynecology | DX: Z01.812 Encounter for preprocedural laboratory examination (principal); N81.11 Cystocele, midline ==

== ENCOUNTER 2022-09-16 05:52 | Day surgery (SDC) | payer MEDICARE, OTHER ==
[2022-09-11 13:13] VITALS: BMI 21.9
[2022-09-12 13:41] LABS: African American GFR (CKD) 98.2 (60.0-200.0); Anion Gap 12.4 mmol/L (10.00-18.00); Basophils # (A) 0.02 X 10*3/uL (0.00-0.10); Basophils % (A) 0.4 %; Blood Urea Nitrogen 14.2 mg/dL (9.0-27.0); Carbon Dioxide 27.6 mmol/L (20.0-27.5); Eosinophils # (A) 0.11 X 10*3/uL (0.04-0.35); Eosinophils % (A) 2.1 %; HCT 40.2 % (37.2-46.3); HGB 13.2 g/dL (12.0-15.0); Immature Grans, Automated 0.2 %; MCHC 32.8 g/dL (32.0-37.0); MCV 97.6 fL (80.0-97.0); Mean Platelet Volume 10.4 fL (9.5-12.2); Monocytes # (A) 0.45 X 10*3/uL (0.20-1.00); Monocytes % (A) 8.7 %; NRBC Per 100 WBC 0 /100 WBCS (0.0-0.0); Neutrophils # (A) 3.19 X 10*3/uL (1.80-7.70); Neutrophils % (A) 61.6 %; Non-African American GFR(CKD) 84.8 (60.0-200.0); Platelet Count 305 X 10*3/uL (140-440); Potassium 4.6 mmol/L (3.5-5.5); RBC 4.12 X 10*6/uL (4.10-5.20); RDW 12.8 % (11.5-14.5); WBC 5.18 X 10*3/uL (4.50-10.00)
[~2022-09-16 05:52] MED LIST changes: +DEXAMETHASONE SOD PHOSPHATE 4 MG/ML 1 ML VIAL IV ONE; -LACTATED RINGERS 1,000 ML IV SCH; -LIDOCAINE 1% (10MG/ML) FOR IV START INTRADERMA PRN; +ONDANSETRON 4 MG/2 ML VIAL IVP ONE; +fentaNYL (PF) 50 MCG/ML 2 ML AMP IV PRN
[2022-09-16] MEDS: LACTATED RINGERS 1,000 ML IV SCH ×2 (06:38→19:55)
[2022-09-16 07:14] LABS: Glucose,Whole Blood 98 mg/dL (70-110)
[2022-09-16] MEDS ORDERED: SUCCINYLCHOLINE CHLORIDE 200 MG/10 ML VIAL IV ONE (07:25)
[2022-09-16] MEDS ORDERED: MORPHINE SULFATE (PF) 0.3 MG/0.3 ML SYR ONE (07:25)
[2022-09-16] MEDS ORDERED: GLYCOPYRROLATE 0.2 MG/ML 2 ML VIAL ONE (07:25)
[2022-09-16] MEDS ORDERED: PROPOFOL 10 MG/ML 20 ML VIAL IV ONE (07:25)
[2022-09-16] MEDS ORDERED: fentaNYL (PF) 50 MCG/ML 2 ML AMP ONE (07:25)
[2022-09-16] MEDS ORDERED: ePHEDrine 50 MG/ML 1 ML VIAL ONE (07:25)
[2022-09-16] MEDS ORDERED: NEOSTIGMINE 1 MG/ML 10 ML VIAL ONE (07:25)
[2022-09-16] MEDS ORDERED: ROCURONIUM 10 MG/ML (5 ML VIAL) IV ONE (07:25)
[2022-09-16] MEDS ORDERED: LIDOCAINE 2% INJ 20 MG/ML (2 ML VIAL) ONE (07:25)
[2022-09-16] MEDS ORDERED: VASOPRESSIN 20 UNIT/ML 1 ML VIAL SQ ONE (07:54)
[2022-09-16] MEDS ORDERED: BACITRACIN ZINC 500 UNIT/GM OINT 28.4 GM TUBE TOPICAL ONE ×2 (07:54→08:19)
[2022-09-16] MEDS ORDERED: diphenhydrAMINE 50 MG/ML 1 ML VIAL IVP PRN (08:38)
[2022-09-16] MEDS ORDERED: SIMETHICONE 80 MG CHEWABLE PO PRN (08:38)
[2022-09-16] MEDS ORDERED: IBUPROFEN 600 MG TAB PO PRN (08:38)
[2022-09-16] MEDS ORDERED: METOCLOPRAMIDE 5 MG/ML 2 ML VIAL IVP PRN (08:38)
[2022-09-16] MEDS ORDERED: ONDANSETRON 4 MG/2 ML VIAL IVP PRN (08:38)
--- NOTE | 2022-09-16 08:38 | P.OP ---
Date of Procedure: 09/16/22 Preoperative Diagnosis: Recently symptomatic uterine prolapse and cystocele Postoperative Diagnosis: Same, normal-appearing ovaries bilaterally high and atrophic Procedure(s) Performed: Vaginal hysterectomy, anterior colporrhaphy Anesthesia: NERI Surgeon: Radha Prasad Supervisor Seaming #1: Macy Pryor Estimated Blood Loss (ml): 50 IV fluids (ml): 500 Urine output (ml): 75 Pathology: other (Cervix and uterus) Condition: stable Disposition: PACU Operative Findings: Normal-appearing atrophic ovaries bilaterally, high on the pelvic sidewalls. Description of Procedure: Patient is brought to the operating suite where a general anesthetic is administered without difficulty after the placement of spinal with Duramorph in the preoperative area. She's placed in the dorsal lithotomy position. The cervix, vagina, perineum, and lower abdomen are all prepped and draped in the usual sterile fashion. The appropriate timeout is performed to assure proper patient and procedural identification. Antibiotics are given. Bladder is drained for approximate 75 mL of clear yellow urine and the weighted speculum was placed into the vagina. Anterior lip of the cervix is grasped with a alexander ble-tooth tenaculum and the cervix is injected circumferentially with a dilute Pitressin solution. A minto blade scalpel is then used to incise the mucosa circumferentially with a V positioning at 6:00. Sponge rolled finger is used to sweep the mucosa well from the operative plane and the peritoneum is entered at 6:00, suture tied with 2-0 Vicryl, and the large billed speculum is then placed into the peritoneal cavity. The right uterosacral cardinal ligament is identified, clamped cut and suture ligated, held with a hemostat laterally. Same procedure is carried out contralaterally. Again, at all times bladder swept well from the operative field to avoid bladder and/or ureteral injury. Uterine vasculature is identified, clamped cut and suture ligated. 2 additional pedicles are taken superior to the vessels and then the uterus is "walked out" posteriorly. Anterior peritoneum is entered at 12:00, Mal clamps used across the final pedicles and the uterus and cervix are removed. These pedicles are tied with 0 Vicryl suture in a Nicolas stitch, flashed, and retied for excellent hemostasis bilaterally. Both ovaries are visualized time the pelvis, atrophic and left in situ per the patient's wishes. All pedicles are clean and dry. The speculum is now changed to the shallow weighted speculum and the peritoneum is brought around in a pursestring fashion to close the peritoneum. The uterosacral cardinal ligament complex these are brought across to incorporate the opposite complex along with mucosa and the vagina is closed. 2 additional figure of 8 sutures of 0 Vicryl are used for final cuff closure. Allis clamps are used on the anterior most portion of the mucosa and the anterior repair is commenced. The anterior vaginal mucosa is injected with the same dilute Pitressin solution in the midline. Metzenbaum scissors are used to undermine the mucosa to approximately 1.5 cm inferior to the urethra. The edges of the mucosa are held with Allis clamps and a finger with sponge is used to sweep the mucosa from the underlying fascial plane. Hope catheter is placed, bladder is draining clear urine. 2-0 Vicryl is used in an interrupted fashion to bring the edges of the fascia together thereby completely reducing the cystocele. Metzenbaum scissors are used to trim the redundant mucosa. 2-0 Vicryl is now used in a running locking stitch to finish the anterior repair. Hemostasis is excellent. Vagina is packed with one-inch iodophor gauze with basic tracing. Hope is noted to be draining clear urine. Patient is brought back to the recovery room in very good condition with stable vital signs including blood pressure 114/59, pulse 50, 98% O2 saturation.
--- NOTE | 2022-09-16 09:03 | P.ANPRN ---
Procedure Note - Anesthesia - Epidural/Spinal Spinal Time Out Performed: Yes Date of Procedure: 09/16/22 Procedure Start Time: 06:55 Procedure Stop Time: 06:59 Location of Patient: PreOp Indication: Acute Post-Operative Pain, Requested by Surgeon (javy) Sedation Type: Sedate with meaningful contact maintained Preparation: Sterile Prep Number of Attempts: 1 Position: Sitting Catheter: None Needle Guage: 25 Injectate: Duramorph 300mcg + fentanyl 25mcg Blood Aspirated: No Pain Paresthesia on Injection Noted: No Events: Uneventful and Well Tolerated
[2022-09-16] MEDS ORDERED: ZOLPIDEM 5 MG TAB PO PRN (14:51)
[2022-09-16] MEDS: SENNOSIDES-DOCUSATE SODIUM 1 EACH TAB PO SCH (19:55)
--- NOTE | 2022-09-17 07:26 | P.PN ---
Progress Note - Text Progress Note Date: 09/17/22 Postop day 1 from vaginal hysterectomy under general anesthesia with intrathecal morphine given for postop pain management. Patient is doing well. Pain is well controlled. On visual analog scale 3/10 Mild itching present No nausea or vomiting reported. No Headache or weakness and numbness in the legs. No complications from intrathecal morphine.
--- NOTE | 2022-09-17 07:45 | P.DS ---
Providers Date of admission: 09/16/22 Expected date of discharge: 09/17/22 Attending physician: Radha Prasad Primary care physician: [facility] Hospital Course: This is a 76-year-old white female who presented with increasingly symptomatic uterine prolapse and cystocele, requesting surgical repair, declining option for pessary. All risks and benefits reviewed. Please see dictated history and physical for details. Yesterday under my care she underwent a vaginal hysterectomy and anterior colporrhaphy. She did well intraoperatively, ovaries were inspected, normal, and left in situ per her wishes. Vaginal packing and Hope catheter were placed. Spinal with Duramorph was received. Surgery was unremarkable, please see dictation for details. This morning the Hope catheter vaginal packing had been removed. Patient has been ambulating, passing flatus, vital signs are stable and she is feeling well. Minimal vaginal drainage. We are awaiting first spontaneous void. Pending successful void and low residual, patient will be discharged home later today. She is judged to be in very good condition for discharge home. She is reminded no intercourse, tampons or douching. She will use [id number] Advil or Aleve, or Motrin as needed for pain. She will call with any fevers shakes or chills, foul smelling or copious lochia, with the passage of large blood clots, with any pain not alleviated by [id number] products, or indeed with any concerns. Assessment: Doing well first postoperative day Patient Condition at Discharge: Good Plan - Discharge Summary Discharge Rx Participant: Yes New Discharge Prescriptions: No Action Omeprazole 20 mg PO DAILY Atorvastatin Calcium 20 mg PO DAILY Valsartan 80 mg PO DAILY Discharge Medication List Atorvastatin Calcium 20 mg PO DAILY 11/14/15 [History] Omeprazole 20 mg PO DAILY 11/14/15 [History] Valsartan 80 mg PO DAILY 09/11/22 [History]
[2022-09-17] MEDS: SENNOSIDES-DOCUSATE SODIUM 1 EACH TAB PO SCH (08:37)
[2022-09-17] MEDS ORDERED: ACETAMINOPHEN TAB 325 MG TAB PO PRN (08:39)
[2022-09-17] MEDS ORDERED: VALSARTAN 80 MG TAB PO SCH (09:00)
[2022-09-17 09:09] VITALS: RESP 16
[2022-09-17 14:37] VITALS: BP 167/79; PULSE 59; TEMP 97.9
== END 2022-09-17 15:06 | disposition home or self-care (01) ==
LOC: OR 05:52 → 4FBP 08:39 → OR 09-17 15:06
PROVIDERS: ATTEND Obstetrics & Gynecology
DX: N81.4 Uterovaginal prolapse, unspecified (principal); N39.41 Urge incontinence; G89.18 Other acute postprocedural pain; Z90.89 Acquired absence of other organs; Z78.0 Asymptomatic menopausal state; Z79.899 Other long term (current) drug therapy
CPT/HCPCS: 88305; 58260; 57240; 64999; J1100; J0690; J2405; 36415; 80051; 82565; 82947; 84520; 85025; 86850; 86900; 86901; 87086; 93005

== ENCOUNTER → 2023-05-06 | Outpatient (CLI) | payer MEDICARE, OTHER ==
--- NOTE | 2023-05-06 20:46 | MM ---
Reason for Exam: Screening (asymptomatic). Last screening mammogram was performed 12 month(s) ago. Patient History: Menarche at age 12. First Full-Term at age 27. Postmenopausal. Other cancer, age 41. Estrogen for 6 years until age 56. Progesterone for 6 years until age 56. Patient used Hormonal Contraceptives for 10 years. 12/07/2006, Benign Core Biopsy on the right side. 03/31/2002, Benign Stereotactic Core Biopsy on the left side. Benign Stereotactic Core Biopsy. Paternal aunt had breast cancer, age 88. Mother had breast cancer, age 65. Risk Values: Betty 5 year model risk: 5.7%. NCI Lifetime model risk: 11.2%. Prior Study Comparison: 04/18/2020 Bilateral Screening Mammogram, [facility]. 04/23/2021 Bilateral Screening Mammogram, [facility]. 05/01/2022 Bilateral MG 3D screening mammo w/cad, [facility]. Tissue Density: The breast tissue is heterogeneously dense. This may lower the sensitivity of mammography. Findings: Analyzed By CAD. 2 microclips left breast from prior biopsies. Unchanged asymmetric densities bilaterally. There is no suspicious group of microcalcifications or new suspicious mass in either breast. Overall Assessment: Benign, BI-RAD 2 Management: Screening Mammogram of both breasts in 1 year. SEE NOTE BELOW IN REGARDS TO PATIENT'S INCREASED 5 YEAR BETTY SCORE. Patient should continue monthly self-breast exams. A clinical breast exam by your physician is recommended on an annual basis. This exam should not preclude additional follow-up of suspicious palpable abnormalities. Note on Betty scores and lifetime risk: 1. A Betty score greater than 3% is considered moderate risk. If this is the case, consider specialist referral to assess eligibility for a risk reducing agent. 2. If overall lifetime risk for the development of breast cancer is 20% or higher, the patient may qualify for future screening with alternating mammogram and breast MRI. Electronically signed and approved by: Brittnee Benitez M.D. Radiologist
== END | disposition home or self-care (01) ==
LOC: RADMAMWWP 11:17
PROVIDERS: ATTEND Family Medicine
DX: Z12.31 Encounter for screening mammogram for malignant neoplasm of breast (principal); Z78.0 Asymptomatic menopausal state
CPT/HCPCS: 77063; 77067

== ENCOUNTER → 2024-01-09 | Outpatient (CLI) | payer MEDICARE, OTHER ==
--- NOTE | 2024-01-09 15:25 | XR ---
EXAMINATION TYPE: XR chest 2V DATE OF EXAM: 01/09/2024 2:47 PM CLINICAL INDICATION: Female, 78 years old with history of G54.0BRACHIAL PLEXUS, M54.2CERVICALGIA,R29. 898MUSC; H COMPARISON: Chest radiographs from TECHNIQUE: XR chest 2V Frontal view of the chest. FINDINGS: Lungs/Pleura: There is no evidence of pleural effusion, focal consolidation, or pneumothorax. Pulmonary vascularity: Unremarkable. Heart/mediastinum: Cardiomediastinal silhouette is unremarkable. Musculoskeletal: No acute osseous pathology. IMPRESSION: No acute cardiopulmonary disease/process. [facility], , 01/09/2024 3:23 PM
--- NOTE | 2024-01-09 15:25 | XR ---
EXAMINATION TYPE: XR forearm LT DATE OF EXAM: 01/09/2024 2:47 PM CLINICAL INDICATION: Female, 78 years old with history of G54.0BRACHIAL PLEXUS, M54.2CERVICALGIA,R29. 898MUSC; COMPARISON: None TECHNIQUE: XR forearm LT; forearm was examined in AP and lateral projections. FINDINGS: No acute osseous pathology, soft tissue swelling or joint dislocations are seen. IMPRESSION: No evidence of acute fracture. [facility], , 01/09/2024 3:23 PM
--- NOTE | 2024-01-09 15:26 | XR ---
EXAMINATION TYPE: XR humerus LT DATE OF EXAM: 01/09/2024 2:47 PM CLINICAL INDICATION: Female, 78 years old with history of G54.0BRACHIAL PLEXUS, M54.2CERVICALGIA,R29. 898MUSC; [facility] COMPARISON: None TECHNIQUE: XR humerus LT examined in frontal and lateral projections. FINDINGS: No evidence of acute osseous pathology, joint dislocation, or soft tissue swelling. The rem aining portions of the visualized chest are unremarkable. IMPRESSION: No acute osseous pathology. [facility], , 01/09/2024 3:24 PM
--- NOTE | 2024-01-09 15:26 | XR ---
EXAMINATION TYPE: XR shoulder complete LT DATE OF EXAM: 01/09/2024 2:47 PM CLINICAL INDICATION: Female, 78 years old with history of G54.0BRACHIAL PLEXUS, M54.2CERVICALGIA,R29. 898MUSC; [facility] COMPARISON: None TECHNIQUE: XR shoulder complete LT; examined in AP, internally rotated and scapular Y projections. FINDINGS: No evidence of acute osseous pathology, joint dislocation, or soft tissue swelling. The remaining po rtions of the visualized chest are unremarkable. Degeneration changes of the acromion, distal clavic le with osteophyte formation. There is osteophyte formation of the glenoid and humeral head. There is joint space narrowing of glenohumeral joint. IMPRESSION: 1. No acute osseous pathology. 2. Mild shoulder osteoarthrosis. [facility], , 01/09/2024 3:24 PM
== END | disposition home or self-care (01) ==
LOC: RADXRMAIN 14:11
PROVIDERS: ATTEND Psychiatry & Neurology Neurology
DX: G54.0 Brachial plexus disorders (principal); M54.2 Cervicalgia; R29.898 Other symptoms and signs involving the musculoskeletal system
CPT/HCPCS: 71046

== ENCOUNTER → 2024-01-12 | Outpatient (CLI) | payer MEDICARE, OTHER ==
--- NOTE | 2024-01-12 11:22 | US ---
EXAMINATION TYPE: US venous doppler duplex UE LT DATE OF EXAM: 01/12/2024 COMPARISON: NONE CLINICAL INDICATION: Female, 78 years old with history of R29.898 SYMPS OF MUSCKULOSKELET SYSTEM ARM WEAK; left hand weakness, no h/o dvt SIDE PERFORMED: Left Left Arm: Negative for DVT IMPRESSION: Grayscale, color doppler, spectral doppler imaging performed of the deep veins of the upper extremiti es. There is normal flow, compressibility and vascular waveforms. [facility], , 01/12/2024 11:20 AM
== END | disposition home or self-care (01) ==
LOC: RADUSWWP 10:44
PROVIDERS: ATTEND Psychiatry & Neurology Neurology
DX: R29.898 Other symptoms and signs involving the musculoskeletal system (principal)

== ENCOUNTER → 2024-01-20 | Outpatient (CLI) | payer MEDICARE, OTHER ==
[2024-01-20 13:58] LABS: African American GFR (CKD) >90 (>60 ml/min/1.73 sqM); Blood Urea Nitrogen 18 mg/dL (7-17); Non-African American GFR(CKD) 82 (>60 ml/min/1.73 sqM)
--- NOTE | 2024-01-20 14:42 | US ---
EXAMINATION TYPE: US arterial UE single level DATE OF EXAM: 01/20/2024 2:10 PM CLINICAL INDICATION: Female, 78 years old with history of R29.898 WEAKNESS OF LEFT HAND, R94.131 ABNO RMAL EKG; Patient states she is unable to move her left hand. No injury. History of: Smoker: Previous Hypertension: Yes Diabetic: No Hyperlipidemia: Yes TIA/CVA: N/A Previous Vascular Surgery: No CAD: N/A MS: N/A Vascular Ulcers: No Claudication: No Gangrene: No Doppler Waveforms: Multiphasic Wrist Brachial Indices: Right: 1.1 Left: 1.0 IMPRESSION: Normal WBI [facility], , 01/20/2024 2:39 PM
--- NOTE | 2024-01-20 17:25 | CT ---
INDICATION: Patient age:Female; 78 years old; Reason for study: R29.898 OT SYMPTOMS AND SIGNS INVOLVING THE MUSCU; H. COMPARISON: Ultrasound left upper extremity arterial 01/20/2024, left humerus and forearm radiographs 01/09/2024, venous ultrasound left upper extremity 01/12/2024. TECHNIQUE: Multiple thin slice sub-millimeter images were obtained through the left upper extremity b efore and after administration of contrast. Patient was given Isovue 370, 100 cc intravenously. Maxi mum intensity projection images were obtained. One or more CT dose reduction strategies were utilized during this examination. Total DLP administered 1310.80 mGycm. FINDINGS: The left subclavian artery, left axillary artery, left brachial artery, left radial and left ulnar ar bashir are intact. There is no CT evidence to suggest vascular injury. The vessels do have a normal a ppearance. The great vessels do have a normal appearance. Osseous structures appear intact. No dislo cation. No joint effusion. Degenerative changes of the cervical spine with multilevel facet arthropat hy. Again changes of the first MCP joint and ulnocarpal joint. No soft tissue edema focal muscular atrophy identified. Visualized portion of the mediastinum is unre markable. Subcentimeter thyroid nodules. The visualized lungs are clear. Retropharyngeal course of th e right internal carotid artery. IMPRESSION No evidence of vascular or soft tissue injury. [facility], , 01/20/2024 5:22 PM
== END | disposition home or self-care (01) ==
LOC: RADUSWWP 13:21
PROVIDERS: ATTEND Psychiatry & Neurology Neurology
DX: R29.898 Other symptoms and signs involving the musculoskeletal system
CPT/HCPCS: 36415; 82565; 84520; 93922

== ENCOUNTER 2024-03-19 09:59 | Emergency (ER) | payer MEDICARE, OTHER ==
--- NOTE | 2024-03-19 10:59 | ED ---
General Adult HPI - General Chief complaint: Shortness of Breath Stated complaint: CONY Time Seen by Provider: 03/19/24 10:06 Source: patient, EMS, RN notes reviewed Mode of arrival: EMS Limitations: no limitations - History of Present Illness Initial comments: Patient is a 78-year-old female present to the emergency department with concerns with difficulty breathing. Onset of symptoms was yesterday morning. No significant cough. No fever. Patient just darted Levaquin secondary to diverticulitis. Patient states her doctor gave her the antibiotic, no CT was done. Patient denies history of similar difficulty breathing previously. Patient does have history of ALS however does still get out of bed and is still ambulatory. No leg pain or calf pain. No leg swelling. - Related Data Home Medications Medication Instructions Recorded Confirmed Atorvastatin Calcium 20 mg PO DAILY 11/14/15 09/16/22 Valsartan 80 mg PO DAILY 09/11/22 09/16/22 Levofloxacin [Levaquin] 500 mg PO HS 03/19/24 03/19/24 Riluzole [Rilutek] 50 mg PO Q12H 03/19/24 03/19/24 metroNIDAZOLE [Flagyl] 500 mg PO DIRECTED 03/19/24 03/19/24 Previous Rx's Medication Instructions Recorded Cefuroxime [Ceftin] 2 tab PO BID #40 tab 03/19/24 Allergies Allergy/AdvReac Type Severity Reaction Status Date / Time clindamycin HCl Allergy Anaphylaxis, Verified 03/19/24 13:32 [From Cleocin] SWELLING OF LIPS clindamycin palmitate HCl Allergy Anaphylaxis,SWELLING Verified 03/19/24 13:32 [From Cleocin] OF LIPS clindamycin phosphate Allergy Anaphylaxis Verified 03/19/24 13:32 [From Cleocin] nitrofurantoin Allergy CHILLS,ACHE Verified 03/19/24 13:32 [From Macrodantin] S,FEVER Penicillins Allergy FACE GOT Verified 03/19/24 13:32 RED CHILD propoxyphene napsylate Allergy Swelling, Verified 03/19/24 13:32 [From Darvocet-N] UNABLE TO URINATE, FELT STRANGE rofecoxib [From Vioxx] Allergy Swelling Verified 03/19/24 13:32 Sulfa (Sulfonamide Allergy Anaphylaxis Verified 03/19/24 13:32 Antibiotics) gentamicin AdvReac POSSIBLE Verified 03/19/24 13:32 ALLERGY TOOK WITH CLEOCIN levofloxacin [From Levaquin] AdvReac Confusion Verified 03/19/24 13:32 Review of Systems ROS Statement: Those systems with pertinent positive or pertinent negative responses have been documented in the HPI. ROS Other: All systems not noted in ROS Statement are negative. Constitutional: Denies: fever, chills Eyes: Denies: eye pain ENT: Denies: ear pain Respiratory: Reports: as per HPI, dyspnea. Denies: cough Cardiovascular: Denies: chest pain Endocrine: Denies: fatigue Gastrointestinal: Reports: as per HPI Past Medical History Past Medical History: Cancer, GERD/Reflux, Osteoarthritis (OA) Additional Past Medical History / Comment(s): ALS History of Any Multi-Drug Resistant Organisms: None Reported Past Surgical History: Orthopedic Surgery, Tonsillectomy Additional Past Surgical History / Comment(s): RT HEEL SPUR SX. DEVIATED SEPTUM REPAIR. ABDOMINALOPLASTY. RIGHT THUMB SURGERY Past Anesthesia/Blood Transfusion Reactions: No Reported Reaction Past Psychological History: No Psychological Hx Reported Smoking Status: Former smoker Past Alcohol Use History: Daily Past Drug Use History: None Reported - Past Family History Mother Family Medical History: Cancer Additional Family Medical History / Comment(s): BREAST General Exam Limitations: no limitations General appearance: alert, in no apparent distress Head exam: Present: normocephalic Eye exam: Present: normal appearance Neck exam: Present: normal inspection Respiratory exam: Present: normal lung sounds bilaterally. Absent: respiratory distress, wheezes, rales, decreased breath sounds Cardiovascular Exam: Present: regular rate, normal rhythm, normal heart sounds GI/Abdominal exam: Present: soft. Absent: distended, tenderness, guarding, rebound, rigid Extremities exam: Present: normal inspection. Absent: pedal edema, calf tenderness Neurological exam: Present: alert Psychiatric exam: Present: normal affect, normal mood Skin exam: Present: normal color Course Vital Signs 03/19/24 10:02 Temperature 97.2 F L Pulse Rate 66 Respiratory 22 Rate Blood Pressure 186/99 O2 Sat by Pulse 99 Oximetry EKG Findings - EKG Results: EKG: interpreted by ERMD, sinus rhythm, normal axis, normal QRS, normal ST/T EKG shows: bradycardia Medical Decision Making - Medical Decision Making Was pt. sent in by a medical professional or institution (, PA, ASSEMBLER [employer]ING [employer], urgent care, hospital, or senior living...) When possible be specific @ -No Did you speak to anyone other than the patient for history (EMS, parent, family, police, friend...)? What history was obtained from this source @ - is present and helps provide history including duration of symptoms and history of als Did you review nursing and triage notes (agree or disagree)? Why? @ -I reviewed and agree with nursing and triage notes Were old charts reviewed (outside hosp., previous admission, EMS record, old EKG, old radiological studies, urgent care reports/EKG's, senior living records)? Report findings @ -Previous chest x-ray reviewed Differential Diagnosis (chest pain, altered mental status, abdominal pain women, abdominal pain men, vaginal bleeding, weakness, fever, dyspnea, syncope, headache, dizziness, GI bleed, back pain, seizure, CVA, palpatations, mental health, musculoskeletal)? @ -Differential Dyspnea: Coronary syndrome, arrhythmia, tamponade, asthma, COPD, pulmonary embolism, pneumonia, pneumothorax, pulmonary effusion, anaphylaxis, diabetic ketoacidosis, flailed chest, pulmonary contusion, diaphragmatic rupture, anemia, neuromuscular, this is not meant to be an all-inclusive list. EKG interpreted by me (3pts min.). @ -As above X-rays interpreted by me (1pt min.). @ -Chest x-ray shows no acute process CT interpreted by me (1pt min.). @ -CT scan of the chest shows atelectasis versus infiltrate right lower lobe U/S interpreted by me (1pt. min.). @ -None done What testing was considered but not performed or refused? (CT, X-rays, U/S, labs)? Why? @ -Consider cultures however patient already on Levaquin. What meds were considered but not given or refused? Why? @ -None Did you discuss the management of the patient with other professionals (professionals i.e. , PA, ASSEMBLER [employer], lab, RT, psych nurse, social science instructor, residential service technician, teacher, corporate trust officer, case picker)? Give summary @ -No Was smoking cessation discussed for >3mins.? @ -No Was critical care preformed (if so, how long)? @ -No Were there social determinants of health that impacted care today? How? (Homelessness, low income, unemployed, alcoholism, drug addiction, transportation, low edu. Level, literacy, decrease access to med. care, intermediate, rehab)? @ -No Was there de-escalation of care discussed even if they declined (Discuss DNR or withdrawal of care, Hospice)? DNR status @ -Secondary to history of ALS discussion was had with patient and family regarding possible admission. Patient refuses this and would like to go home. Patient is aware that she is at high risk secondary to her underlying disease. What co-morbidities impacted this encounter? (DM, HTN, Smoking, COPD, CAD, Cancer, CVA, ARF, Chemo, Hep., AIDS, mental health diagnosis, sleep apnea, morbid obesity)? @ -History of Abby Gehrig's disease Was patient admitted / discharged? Hospital course, mention meds given and route, prescriptions, significant lab abnormalities, going to OR and other pertinent info. @ -Patient presents with history of ALS, dyspnea over the past 2 days. Patient is concerned that symptoms may be related to Levaquin use. Patient states she is stopping Levaquin. CT scan questionable for atelectasis versus pneumonia. Patient will be covered with Ceftin. Patient also states she is going to take Flagyl which was also prescribed for her abdomen. Patient will be discharged with recommended close follow-up and notified of need to return for any worsening symptoms Undiagnosed new problem with uncertain prognosis? @ -No Drug Therapy requiring intensive monitoring for toxicity (Heparin, Nitro, Insulin, Cardizem)? @ -No Were any procedures done? @ -No Diagnosis/symptom? @ -Dyspnea Acute, or Chronic, or Acute on Chronic? @ -Acute Uncomplicated (without systemic symptoms) or Complicated (systemic symptoms)? @ -Complicated with questionable diagnosis of atelectasis versus infiltrate. Patient also on antibiotics prior to today. Side effects of treatment? @ -No Exacerbation, Progression, or Severe Exacerbation? @ -No Poses a threat to life or bodily function? How? (Chest pain, USA, PR, pneumonia, PE, COPD, DKA, ARF, appy, cholecystitis, CVA, Diverticulitis, Homicidal, Suicidal, threat to staff... and all critical care pts) @ -Threat to pulmonary function - Lab Data Result diagrams: 03/19/24 10:57 03/19/24 10:57 Lab Results 03/19/24 03/19/24 03/19/24 Range/Units 10:57 10:57 10:57 WBC 3.4 L (3.8-10.6) k/uL RBC 4.10 (3.80-5.40) m/uL Hgb 12.7 (11.4-16.0) gm/dL Hct 38.4 (34.0-46.0) % MCV 93.6 (80.0-100.0) fL MCH 31.1 (25.0-35.0) pg MCHC 33.2 (31.0-37.0) g/dL RDW 11.7 (11.5-15.5) % Plt Count 365 (150-450) k/uL MPV 7.9 Neutrophils % 64 % Lymphocytes % 21 % Monocytes % 9 % Eosinophils % 2 % Basophils % 1 % Neutrophils # 2.2 (1.3-7.7) k/uL Lymphocytes # 0.7 L (1.0-4.8) k/uL Monocytes # 0.3 (0-1.0) k/uL Eosinophils # 0.1 (0-0.7) k/uL Basophils # 0.0 (0-0.2) k/uL PT 10.4 (10.0-12.5) sec INR 0.9 (<1.2) APTT 26.2 (22.0-30.0) sec D-Dimer 1.06 H (<0.60) mg/L FEU Sodium 135 L (137-145) mmol/L Potassium 4.1 (3.5-5.1) mmol/L Chloride 106 (98-107) mmol/L Carbon Dioxide 23 (22-30) mmol/L Anion Gap 6 mmol/L BUN 14 (7-17) mg/dL Creatinine 0.60 (0.52-1.04) mg/dL Est GFR (CKD-EPI)AfAm >90 (>60 ml/min/1.73 sqM) Est GFR (CKD-EPI)NonAf 88 (>60 ml/min/1.73 sqM) Glucose 108 H (74-99) mg/dL Plasma Lactic Acid Hank (0.7-2.0) mmol/L Calcium 9.6 (8.4-10.2) mg/dL Magnesium 2.1 (1.6-2.3) mg/dL Total Bilirubin 0.6 (0.2-1.3) mg/dL AST 26 (14-36) U/L ALT 20 (4-34) U/L Alkaline Phosphatase 75 (38-126) U/L Troponin I (0.000-0.034) ng/mL NT-Pro-B Natriuret Pep 133 pg/mL Total Protein 6.8 (6.3-8.2) g/dL Albumin 4.0 (3.5-5.0) g/dL Influenza Type A (PCR) (Not Detectd) Influenza Type B (PCR) (Not Detectd) RSV (PCR) (Not Detectd) SARS-CoV-2 (PCR) (Not Detectd) 03/19/24 03/19/24 03/19/24 Range/Units 10:57 10:57 11:35 WBC (3.8-10.6) k/uL RBC (3.80-5.40) m/uL Hgb (11.4-16.0) gm/dL Hct (34.0-46.0) % MCV (80.0-100.0) fL MCH (25.0-35.0) pg MCHC (31.0-37.0) g/dL RDW (11.5-15.5) % Plt Count (150-450) k/uL MPV Neutrophils % % Lymphocytes % % Monocytes % % Eosinophils % % Basophils % % Neutrophils # (1.3-7.7) k/uL Lymphocytes # (1.0-4.8) k/uL Monocytes # (0-1.0) k/uL Eosinophils # (0-0.7) k/uL Basophils # (0-0.2) k/uL PT (10.0-12.5) sec INR (<1.2) APTT (22.0-30.0) sec D-Dimer (<0.60) mg/L FEU Sodium (137-145) mmol/L Potassium (3.5-5.1) mmol/L Chloride (98-107) mmol/L Carbon Dioxide (22-30) mmol/L Anion Gap mmol/L BUN (7-17) mg/dL Creatinine (0.52-1.04) mg/dL Est GFR (CKD-EPI)AfAm (>60 ml/min/1.73 sqM) Est GFR (CKD-EPI)NonAf (>60 ml/min/1.73 sqM) Glucose (74-99) mg/dL Plasma Lactic Acid Hank 1.0 (0.7-2.0) mmol/L Calcium (8.4-10.2) mg/dL Magnesium (1.6-2.3) mg/dL Total Bilirubin (0.2-1.3) mg/dL AST (14-36) U/L ALT (4-34) U/L Alkaline Phosphatase (38-126) U/L Troponin I <0.012 (0.000-0.034) ng/mL NT-Pro-B Natriuret Pep pg/mL Total Protein (6.3-8.2) g/dL Albumin (3.5-5.0) g/dL Influenza Type A (PCR) Not Detected (Not Detectd) Influenza Type B (PCR) Not Detected (Not Detectd) RSV (PCR) Not Detected (Not Detectd) SARS-CoV-2 (PCR) Not Detected (Not Detectd) Disposition Clinical Impression: Dyspnea Disposition: HOME SELF-CARE Condition: Stable Instructions (If sedation given, give patient instructions): Dyspnea (ED) Additional Instructions: Please do follow-up with your primary care physician Thursday. Return immediately for fevers, increased difficulty breathing, increased weakness, worsening symptoms or any other concerns. Prescription sent to pharmacy. Prescriptions: Cefuroxime [Ceftin] 2 tab PO BID #40 tab Is patient prescribed a controlled substance at d/c from ED?: No Referrals: Calin Carlisle DO [Primary Care Provider] - 1-2 days Time of Disposition: 13:46
[2024-03-19 11:07] LABS: Basophils % (A) 1 %; Eosinophils # (A) 0.1 k/uL (0-0.7); Eosinophils % (A) 2 %; HCT 38.4 % (34.0-46.0); HGB 12.7 gm/dL (11.4-16.0); Lymphocytes # (A) 0.7 k/uL (1.0-4.8); Lymphocytes % (A) 21 %; MCH 31.1 pg (25.0-35.0); MCHC 33.2 g/dL (31.0-37.0); MCV 93.6 fL (80.0-100.0); Mean Platelet Volume 7.9; Monocytes # (A) 0.3 k/uL (0-1.0); Monocytes % (A) 9 %; Neutrophils # (A) 2.2 k/uL (1.3-7.7); Neutrophils % (A) 64 %; Platelet Count 365 k/uL (150-450); RDW 11.7 % (11.5-15.5); WBC 3.4 k/uL (3.8-10.6)
[2024-03-19 11:22] LABS: INR 0.9 (<1.2); Partial Thromboplastin Time 26.2 sec (22.0-30.0); Prothrombin Time 10.4 sec (10.0-12.5)
[2024-03-19 11:24] LABS: ALT 20 U/L (4-34); AST 26 U/L (14-36); African American GFR (CKD) >90 (>60 ml/min/1.73 sqM); Alkaline Phosphatase 75 U/L (38-126); Anion Gap 6 mmol/L; Blood Urea Nitrogen 14 mg/dL (7-17); Calcium 9.6 mg/dL (8.4-10.2); Carbon Dioxide 23 mmol/L (22-30); Chloride 106 mmol/L (98-107); Glucose 108 mg/dL (74-99); Magnesium 2.1 mg/dL (1.6-2.3); Non-African American GFR(CKD) 88 (>60 ml/min/1.73 sqM); Potassium 4.1 mmol/L (3.5-5.1); Sodium 135 mmol/L (137-145); Total Bilirubin 0.6 mg/dL (0.2-1.3); Total Protein 6.8 g/dL (6.3-8.2)
--- NOTE | 2024-03-19 11:25 | XR ---
2 view chest HISTORY: Difficulty breathing COMPARISON: 01/01/2024 TECHNIQUE: PA and lateral views chest obtained. FINDINGS: The lungs are clear of consolidative, interstitial or masslike opacity. There is no pleural effusion, pleural thickening or pneumothorax. The heart, pulmonary vasculature, mediastinum and gordo are within normal limits. The osseous structures and soft tissues of the thorax are intact. IMPRESSION: No significant abnormality. No acute cardiopulmonary disease. [facility], , 03/19/2024 11:22 AM
[2024-03-19 11:36] LABS: NT-Pro-B-Type Natriuretic Pept 133 pg/mL
--- NOTE | 2024-03-19 12:42 | CT ---
EXAMINATION TYPE: CT angio chest DATE OF EXAM: 03/19/2024 COMPARISON: 04/23/2022 CLINICAL INDICATION: Female, 78 years old with history of elevated Dimer; PHH, Elevated dimer, CONY, p t just started new med Levaquin TECHNIQUE: CTA scan of the thorax is performed with IV Contrast, patient injected with 100 mL of Isovue 370, pul monary embolism protocol. MIP images are created and reviewed. CT DLP: 260.[address] CTDI: mGy Automated exposure control for dose reduction was used. FINDINGS: There is a focal opacity in the right lung base posteriorly consistent with atelectasis or possibly a pneumonic infiltrate. The left lung is clear. There is no suspicious lung mass or nodule there is no pleural effusion or pneumothorax. There is no filling defect within the pulmonary arterial circulation to suggest pulmonary embolism. T he thoracic aorta is normal in caliber. There is no mediastinal, hilar or axillary adenopathy. Limite d scans of the upper abdomen reveals no gross abnormality. No focal osseous lesion is seen. IMPRESSION: 1. No evidence of pulmonary embolism. 2. Right lower lung opacity consistent with pneumonia or atelectasis. [facility], , 03/19/2024 12:40 PM
[2024-03-19 14:46] VITALS: BP 169/98; PULSE 72; RESP 18; TEMP 98.2
== END 2024-03-19 14:49 | disposition home or self-care (01) ==
LOC: EC 09:59
DX: R06.02 Shortness of breath (principal); G12.21 Amyotrophic lateral sclerosis; Z87.891 Personal history of nicotine dependence; Z88.1 Allergy status to other antibiotic agents; Z88.8 Allergy status to other drugs, medicaments and biological substances; Z88.0 Allergy status to penicillin; Z88.2 Allergy status to sulfonamides
CPT/HCPCS: 36415; 93005; 85379; 83880; 80053; 83605; 83735; 84484; 85025; 85610; 85730; 87636; 71046; 71275; 99285; Q9967

== ENCOUNTER → 2024-07-22 | Outpatient (CLI) | payer MEDICARE, OTHER ==
--- NOTE | 2024-07-22 15:02 | CT ---
EXAMINATION TYPE: CT abdomen pelvis wo con CT DLP: 414.3 mGycm, Automated exposure control for dose reduction was used. DATE OF EXAM: 07/22/2024 2:48 PM COMPARISON: Ultrasound liver 07/29/2017, pelvic ultrasound 10/09/2016 CLINICAL INDICATION:Female, 78 years old with history of M79.89 OTHER SPECIFIED SOFT TISSUE D G12.21 R13.12; possible peg tube insertion TECHNIQUE: Standard CT of the abdomen and pelvis without IV or oral contrast. Lack of IV or oral co ntrast limits evaluation of solid and hollow organ viscera. Coronal and sagittal reformats were perfo rmed. FINDINGS: LOWER CHEST: Linear scarring and/or atelectasis within the bilateral lower lobes right greater than l eft. Cardiomegaly. Small calcifications within the visualized RCA. Elevation of the right hemidiaphra gm. ABDOMEN LIVER: Unremarkable noncontrast appearance GALLBLADDER AND BILE DUCTS: Unremarkable noncontrast appearance PANCREAS: Unremarkable noncontrast appearance SPLEEN: Unremarkable noncontrast appearance ADRENAL GLANDS: Unremarkable noncontrast appearance. KIDNEYS AND URETERS: No evidence of hydronephrosis or renal calculus. PELVIS BLADDER: Incompletely distended but grossly unremarkable. REPRODUCTIVE: The uterus is surgically absent. ABDOMEN & PELVIS STOMACH AND BOWEL: Stomach and duodenum are unremarkable. No structures interposed between the anteri or epigastric abdominal wall in the stomach lumen. The left hepatic lobe approximately body and dista l stomach along its medial aspect. Scattered distal colonic diverticulosis without evidence for acute diverticulitis. The appendix is within normal limits. No focal bowel wall thickening or surrounding inflammatory changes. No evidence of bowel obstruction. PERITONEUM: No evidence of pneumoperitoneum or free fluid. VASCULATURE: Mild atherosclerotic calcifications are present throughout the abdominal aorta and its b ranches. No evidence of aortic aneurysm. MUSCULOSKELETAL: No acute osseous abnormalities. Multilevel degenerative disc disease most pronounced involving the lower lumbar spine. LYMPH NODES: No gross evidence for lymphadenopathy. SOFT TISSUE/ABDOMINAL WALL: Unremarkable IMPRESSION: 1. No CT evidence for acute abdominal/pelvic process within limitations of a noncontrast exam. 2. Colonic diverticulosis without evidence for acute diverticulitis. [facility], , 07/22/2024 3:00 PM
--- NOTE | 2024-07-22 15:27 | US ---
EXAMINATION TYPE: US venous doppler duplex LE LT DATE OF EXAM: 07/22/2024 3:10 PM COMPARISON: NONE CLINICAL INDICATION: Female, 78 years old with history of M79.89 OTHER SPECIFIED SOFT TISSUE D G12.21 R13.12; left leg edema, Pain TECHNIQUE: The lower extremity deep venous system is examined utilizing real time linear array sonog destiny with graded compression, color doppler sonography, and spectral doppler. SIDE PERFORMED: Left FINDINGS: VESSELS IMAGED: Common Femoral Vein Deep Femoral Vein Greater Saphenous Vein * Femoral Vein Popliteal Vein Small Saphenous Vein * Proximal Calf Veins (* superficial vessels) Left Leg: Negative for DVT, Color Doppler imaging shows patency of the vessels. Spectral waveforms a re within normal limits. IMPRESSION: No ultrasound evidence for deep venous thrombosis. [facility], , 07/22/2024 3:25 PM
== END | disposition home or self-care (01) ==
LOC: RADCTMAIN 14:17
PROVIDERS: ATTEND Student in an Organized Health Care Education/Training Program
DX: G12.21 Amyotrophic lateral sclerosis (principal); R13.12 Dysphagia, oropharyngeal phase; M79.89 Other specified soft tissue disorders; K57.30 Diverticulosis of large intestine without perforation or abscess without bleeding
CPT/HCPCS: 74176